=== PATIENT | male | born 1990 | race Two or more races ===

== ENCOUNTER 2020-08-22 06:23 | Inpatient (IN) | payer BC ==
[~2020-08-22] VITALS: Ht 188 cm; Wt 70.4 kg
[2020-08-22] VITALS (14 sets, daily range): BP systolic 82–138; BP diastolic 46–97
[2020-08-22] MEDS ORDERED: HALOPERIDOL LACTATE 5 MG/ML VIAL IV STA (06:26)
[2020-08-22] MEDS ORDERED: SODIUM CHLORIDE 0.9% 1000ML 1,000 ML IV STA (06:26)
[2020-08-22] MEDS ORDERED: PANTOPRAZOLE 40 MG 10ML VIAL IV STA (06:29)
[2020-08-22] MEDS ORDERED: LACTATED RINGER'S 1,000 ML INJ ONE (06:45)
[2020-08-22] MEDS ORDERED: SODIUM CHLORIDE 0.9% 1000ML 1,000 ML IV SCH (06:45)
[2020-08-22 07:21] LABS: BASOPHILS % 0.2 % (0.0-1.0); HEMATOCRIT 43.6 % (38.2-49.6); HEMOGLOBIN 13.8 g/dL (14.0-18.0); LYMPHOCYTES # (AUTO) 1.5 (1.0-3.2); LYMPHOCYTES % 10.1 % (18.0-39.1); MEAN CORPUSCULAR HEMOGLOBIN 26.2 pg (28-32); MEAN CORPUSCULAR HGB CONC 31.7 g/dL (31-35); MEAN CORPUSCULAR VOLUME 82.7 fL (81-99); MONOCYTES # (AUTO) 0.6 (0.2-0.8); MONOCYTES % 3.9 % (4.4-11.3); NEUTROPHILS # (AUTO) 12.4 (2.1-6.9); NEUTROPHILS % 85.3 % (38.7-80.0); PLATELET COUNT 481 x10e3/uL (140-360); RED BLOOD COUNT 5.27 x10e6/uL (4.3-5.7); RED CELL DISTRIBUTION WIDTH 15.7 % (11.7-14.4)
[2020-08-22 07:39] LABS: AMPHETAMINES SCREEN,URINE NEGATIVE (NEGATIVE); BENZODIAZEPINES SCREEN,URINE NEGATIVE (NEGATIVE); PHENCYCLIDINE SCREEN,URINE NEGATIVE (NEGATIVE)
[2020-08-22 07:40] LABS: CLARITY,URINE CLEAR (CLEAR); COLOR,URINE YELLOW (YELLOW)
[2020-08-22 07:41] LABS: KETONES,URINE >=160 (NEGATIVE); LEUKOCYTE ESTERASE ,URINE NEGATIVE (NEGATIVE); NITRITE,URINE NEGATIVE (NEGATIVE); PROTEIN,URINE DIPSTICK NEGATIVE (NEGATIVE); URINE UROBILINOGEN 0.2 mg/dL (0.2 - 1)
[2020-08-22 08:00] LABS: ALBUMIN 4.1 g/dL (3.5-5.0); ANION GAP 37.7 mmol/L (8-16); CALCIUM 9.4 mg/dL (8.4-10.2); CREATININE, SERUM 1.71 mg/dL (0.72-1.25); POTASSIUM 4.7 mmol/L (3.5-5.1)
[2020-08-22] MEDS ORDERED: MAGNESIUM SULF 1GRAM/DEXTROSE 100 ML IV PRN ×2 (08:15→13:00)
[2020-08-22] MEDS ORDERED: POTASSIUM CHLORIDE 20MEQ/100ML 200 ML IV PRN ×2 (08:15→13:00)
[2020-08-22] MEDS ORDERED: DEXTROSE 5%/0.45% SOD CHL 1,000 ML IV SCH (08:15)
[2020-08-22] MEDS ORDERED: INSULIN REGULAR, HUMAN 3ML VL 100 UNIT in SODIUM CHLORIDE 0.9% 99 ML IV SCH ×2 (08:15)
[2020-08-22 08:25] LABS: BACTERIA,URINE FEW /HPF; EPITHELIAL CELLS,URINE RARE /LPF; WBC,URINE (MAN) 0-5 /HPF (0-5)
[2020-08-22] MEDS ORDERED: INSULIN REGULAR, HUMAN 100 UNIT/1 ML 3ML VIAL IV ONE (09:45)
[2020-08-22] MEDS ORDERED: INSULIN REGULAR, HUMAN 100 UNIT/1 ML 3ML VIAL ONE (09:55)
[2020-08-22] MEDS: SODIUM CHLORIDE 0.9% 1000ML 1,000 ML IV SCH ×2 (09:57→12:15)
[2020-08-22] MEDS ORDERED: ACETAMINOPHEN 325 MG TAB PO PRN (10:30)
[2020-08-22] MEDS: MORPHINE SULFATE INJ 4 MG/ML INJ 1ML IV PRN ×2 (10:49→18:34)
[2020-08-22 10:57] LABS: CHOL/HDL RATIO 3.6 (3.9-4.7)
[2020-08-22 11:17] LABS: FREE THYROXINE INDEX 2.4848 (1.4-3.8); THYROID STIMULATING HORMONE 0.242 uIU/mL (0.350-4.940)
[2020-08-22 11:25] LABS: ANION GAP 26.7 mmol/L (8-16); CALCIUM 8.3 mg/dL (8.4-10.2); CREATININE, SERUM 1.4 mg/dL (0.72-1.25); MAGNESIUM 1.2 MG/DL (1.3-2.1); POTASSIUM 3.7 mmol/L (3.5-5.1)
[2020-08-22] MEDS ORDERED: INSULIN REGULAR, HUMAN 3ML VL 300 UNIT in SODIUM CHLORIDE 0.45% 100 ML 300 ML IV SCH ×2 (14:30)
[2020-08-22] MEDS ORDERED: DEXTROSE 50% SYRINGE 50 ML IV PRN (14:30)
[2020-08-22] MEDS ORDERED: INSULIN REGULAR, HUMAN 3ML VL 100 UNIT in SODIUM CHLORIDE 0.9% 100 ML IV SCH ×2 (14:45)
[2020-08-22] MEDS: ONDANSETRON HCL INJ 2MG/ML 2ML 2 MG/ML VIAL IV PRN ×3 (15:00→23:27)
[2020-08-22 15:49] LABS: BLOOD UREA NITROGEN 14 mg/dL (7-26); BUN/CREATININE RATIO 13 (6-25); CARBON DIOXIDE 29 mmol/L (22-29); CHLORIDE 102 mmol/L (98-107); CREATININE, SERUM 1.06 mg/dL (0.72-1.25); EST GLOMERULAR FILTRATION RATE > 60 ML/MIN (60-); GLUCOSE 102 mg/dL (74-118); MAGNESIUM 1.5 MG/DL (1.3-2.1); SODIUM 145 mmol/L (136-145)
[2020-08-22] MEDS: POTASSIUM CHLORIDE 40 MEQ in DEXTROSE 5%/0.45% SOD CHL 1,000 ML IV SCH ×2 (15:51→23:56)
[2020-08-22] MEDS: MAGNESIUM SULF 1GRAM/DEXTROSE 100 ML IV PRN ×2 (17:05→22:12)
[2020-08-22] MEDS: POTASSIUM CHLORIDE 20MEQ/100ML 100 ML IV PRN (17:05)
[2020-08-22] MEDS: ACETAMINOPHEN/CODEINE 300MG - 30MG TAB PO PRN (18:23)
[2020-08-22 20:52] LABS: ANION GAP 15.7 mmol/L (8-16); BLOOD UREA NITROGEN 11 mg/dL (7-26); BUN/CREATININE RATIO 10 (6-25); CALCIUM 7.8 mg/dL (8.4-10.2); CARBON DIOXIDE 29 mmol/L (22-29); CHLORIDE 102 mmol/L (98-107); EST GLOMERULAR FILTRATION RATE > 60 ML/MIN (60-); GLUCOSE 158 mg/dL (74-118); MAGNESIUM 1.6 MG/DL (1.3-2.1); POTASSIUM 3.7 mmol/L (3.5-5.1); SODIUM 143 mmol/L (136-145)
[2020-08-22] MEDS ORDERED: MAGNESIUM SULF 1GRAM/DEXTROSE 100 ML IV ONE (22:21)
[2020-08-23] VITALS (19 sets, daily range): BP systolic 90–145; BP diastolic 58–106
[2020-08-23] MEDS: ACETAMINOPHEN/CODEINE 300MG - 30MG TAB PO PRN ×2 (00:33→20:36)
[2020-08-23] MEDS: MORPHINE SULFATE INJ 4 MG/ML INJ 1ML IV PRN ×2 (01:08→21:36)
[2020-08-23 01:54] LABS: ANION GAP 14.4 mmol/L (8-16); BLOOD UREA NITROGEN 8 mg/dL (7-26); BUN/CREATININE RATIO 8 (6-25); CARBON DIOXIDE 29 mmol/L (22-29); CHLORIDE 102 mmol/L (98-107); CREATININE, SERUM 1.04 mg/dL (0.72-1.25); EST GLOMERULAR FILTRATION RATE > 60 ML/MIN (60-); GLUCOSE 121 mg/dL (74-118); MAGNESIUM 1.7 MG/DL (1.3-2.1); POTASSIUM 3.4 mmol/L (3.5-5.1); SODIUM 142 mmol/L (136-145)
[2020-08-23] MEDS: MAGNESIUM SULF 1GRAM/DEXTROSE 100 ML IV PRN (02:21)
[2020-08-23] MEDS: POTASSIUM CHLORIDE 20MEQ/100ML 100 ML IV PRN (02:22)
[2020-08-23] MEDS ORDERED: MAGNESIUM SULF 1GRAM/DEXTROSE 100 ML IV ONE (02:31)
[2020-08-23] MEDS: ONDANSETRON HCL INJ 2MG/ML 2ML 2 MG/ML VIAL IV PRN ×2 (06:15→20:25)
[2020-08-23 07:27] LABS: BASOPHILS # (AUTO) 0.1 (0.0-0.1); BASOPHILS % 0.5 % (0.0-1.0); EOSINOPHILS % 0.3 % (0.0-6.0); HEMATOCRIT 32.4 % (38.2-49.6); HEMOGLOBIN 10.1 g/dL (14.0-18.0); LYMPHOCYTES # (AUTO) 2.8 (1.0-3.2); LYMPHOCYTES % 29.3 % (18.0-39.1); MEAN CORPUSCULAR HGB CONC 31.2 g/dL (31-35); MEAN CORPUSCULAR VOLUME 83.3 fL (81-99); MONOCYTES # (AUTO) 0.6 (0.2-0.8); MONOCYTES % 6.5 % (4.4-11.3); NEUTROPHILS # (AUTO) 5.9 (2.1-6.9); PLATELET COUNT 326 x10e3/uL (140-360); RED BLOOD COUNT 3.89 x10e6/uL (4.3-5.7); RED CELL DISTRIBUTION WIDTH 15.5 % (11.7-14.4)
[2020-08-23] MEDS: PANTOPRAZOLE SOD 40 MG TABEC PO SCH (07:35)
[2020-08-23 07:46] LABS: ANION GAP 15.5 mmol/L (8-16); BLOOD UREA NITROGEN 7 mg/dL (7-26); BUN/CREATININE RATIO 7 (6-25); CALCIUM 8.1 mg/dL (8.4-10.2); CARBON DIOXIDE 27 mmol/L (22-29); CHLORIDE 101 mmol/L (98-107); CREATININE, SERUM 0.98 mg/dL (0.72-1.25); EST GLOMERULAR FILTRATION RATE > 60 ML/MIN (60-); GLUCOSE 114 mg/dL (74-118); MAGNESIUM 1.7 MG/DL (1.3-2.1); PHOSPHORUS 1.4 MG/DL (2.3-4.7); POTASSIUM 3.5 mmol/L (3.5-5.1); SODIUM 140 mmol/L (136-145)
[2020-08-23] MEDS: POTASSIUM CHLORIDE 40 MEQ in DEXTROSE 5%/0.45% SOD CHL 1,000 ML IV SCH ×2 (07:49→16:21)
[2020-08-23 07:59] LABS: CHOL/HDL RATIO 3.1 (3.9-4.7)
[2020-08-23 08:20] LABS: FREE T4 (FREE THYROXINE) 1.18 ng/dL (0.8-1.8); THYROID STIMULATING HORMONE 2.29 uIU/mL (0.350-4.940)
[2020-08-23] MEDS: DIPHENHYDRAMINE HCL INJ 50 MG/ML VIAL IV PRN (08:22)
[2020-08-23] MEDS ORDERED: POTASSIUM PHOSPHATE 15 MM in SODIUM CHLORIDE 0.9% 250ML 250 ML IV ONE (09:00)
[2020-08-23] MEDS ORDERED: CEPACOL SORE THROAT LOZENGES PO PRN (14:30)
[2020-08-23] MEDS ORDERED: NICOTINE POLACRILEX 2 MG LOZG #24 MM PRN (14:30)
[2020-08-23] MEDS: INSULIN GLARGINE 100 UNITS/ML VIAL SQ SCH (21:00)
[2020-08-23] MEDS ORDERED: PROMETHAZINE 12.5MG/ NACL 0.9% 12.5 MG/50 ML BAG IV ONE (21:45)
[2020-08-23] MEDS: INSULIN REGULAR, HUMAN 3ML VL 100 UNIT in SODIUM CHLORIDE 0.9% 99 ML IV SCH ×2 (23:45)
[2020-08-24] VITALS (17 sets, daily range): BP systolic 89–147; BP diastolic 66–95
[2020-08-24] MEDS: ONDANSETRON HCL INJ 2MG/ML 2ML 2 MG/ML VIAL IV PRN ×3 (00:38→16:31)
[2020-08-24] MEDS: POTASSIUM CHLORIDE 40 MEQ in DEXTROSE 5%/0.45% SOD CHL 1,000 ML IV SCH ×3 (02:35→19:20)
[2020-08-24] MEDS ORDERED: DEXTROSE IV ONE (02:37)
[2020-08-24] MEDS ORDERED: SOD CHL IV ONE (02:37)
[2020-08-24] MEDS: MORPHINE SULFATE INJ 4 MG/ML INJ 1ML IV PRN ×3 (02:49→16:31)
[2020-08-24] MEDS: INSULIN REGULAR, HUMAN 3ML VL 100 UNIT in SODIUM CHLORIDE 0.9% 99 ML IV SCH ×2 (04:13)
[2020-08-24 06:27] LABS: BASOPHILS % 0.2 % (0.0-1.0); EOSINOPHILS % 0.1 % (0.0-6.0); HEMATOCRIT 36.3 % (38.2-49.6); HEMOGLOBIN 11.5 g/dL (14.0-18.0); LYMPHOCYTES # (AUTO) 1.6 (1.0-3.2); LYMPHOCYTES % 17.4 % (18.0-39.1); MEAN CORPUSCULAR HEMOGLOBIN 25.8 pg (28-32); MEAN CORPUSCULAR HGB CONC 31.7 g/dL (31-35); MEAN CORPUSCULAR VOLUME 81.6 fL (81-99); MONOCYTES # (AUTO) 0.4 (0.2-0.8); PLATELET COUNT 309 x10e3/uL (140-360); RED BLOOD COUNT 4.45 x10e6/uL (4.3-5.7); RED CELL DISTRIBUTION WIDTH 14.9 % (11.7-14.4)
[2020-08-24 06:47] LABS: ANION GAP 17.1 mmol/L (8-16); BLOOD UREA NITROGEN < 5 mg/dL (7-26); CALCIUM 8.4 mg/dL (8.4-10.2); CARBON DIOXIDE 30 mmol/L (22-29); CHLORIDE 95 mmol/L (98-107); CREATININE, SERUM 0.96 mg/dL (0.72-1.25); EST GLOMERULAR FILTRATION RATE > 60 ML/MIN (60-); GLUCOSE 203 mg/dL (74-118); POTASSIUM 4.1 mmol/L (3.5-5.1); SODIUM 138 mmol/L (136-145)
[2020-08-24 06:49] LABS: BUN/CREATININE RATIO 5 (6-25)
[2020-08-24] MEDS: PANTOPRAZOLE SOD 40 MG TABEC PO SCH (07:29)
[2020-08-24] MEDS: ACETAMINOPHEN/CODEINE 300MG - 30MG TAB PO PRN (08:20)
[2020-08-24] MEDS: DIPHENHYDRAMINE HCL INJ 50 MG/ML VIAL IV PRN (11:57)
[2020-08-24] MEDS: BUSPIRONE HCL 5 MG TAB PO SCH (19:20)
[2020-08-24] MEDS: INSULIN GLARGINE 100 UNITS/ML VIAL SQ SCH (22:42)
[2020-08-24 23:45] LABS: ANION GAP 18.6 mmol/L (8-16); BLOOD UREA NITROGEN < 5 mg/dL (7-26); CALCIUM 8.5 mg/dL (8.4-10.2); CARBON DIOXIDE 27 mmol/L (22-29); CHLORIDE 98 mmol/L (98-107); CREATININE, SERUM 0.84 mg/dL (0.72-1.25); EST GLOMERULAR FILTRATION RATE > 60 ML/MIN (60-); POTASSIUM 3.6 mmol/L (3.5-5.1); SODIUM 140 mmol/L (136-145)
[2020-08-25] VITALS (15 sets, daily range): BP systolic 99–127; BP diastolic 65–99
[2020-08-25 00:03] LABS: BUN/CREATININE RATIO 6 (6-25)
[2020-08-25 00:04] LABS: GLUCOSE 56 mg/dL (74-118)
[2020-08-25 01:14] LABS: LIPASE < 4 U/L (8-78)
[2020-08-25] MEDS: POTASSIUM CHLORIDE 40 MEQ in DEXTROSE 5%/0.45% SOD CHL 1,000 ML IV SCH ×4 (02:06→23:07)
[2020-08-25 06:11] LABS: MAGNESIUM 0.9 MG/DL (1.3-2.1)
[2020-08-25 06:20] LABS: BASOPHILS % 0.7 % (0.0-1.0); EOSINOPHILS # (AUTO) 0.1 (0.0-0.4); EOSINOPHILS % 2.4 % (0.0-6.0); HEMATOCRIT 35.4 % (38.2-49.6); HEMOGLOBIN 11.3 g/dL (14.0-18.0); LYMPHOCYTES # (AUTO) 2.9 (1.0-3.2); MEAN CORPUSCULAR HEMOGLOBIN 26.5 pg (28-32); MEAN CORPUSCULAR HGB CONC 31.9 g/dL (31-35); MEAN CORPUSCULAR VOLUME 82.9 fL (81-99); MONOCYTES # (AUTO) 0.3 (0.2-0.8); MONOCYTES % 4.9 % (4.4-11.3); NEUTROPHILS # (AUTO) 2.1 (2.1-6.9); NEUTROPHILS % 38.6 % (38.7-80.0); PLATELET COUNT 247 x10e3/uL (140-360); RED BLOOD COUNT 4.27 x10e6/uL (4.3-5.7); RED CELL DISTRIBUTION WIDTH 15.1 % (11.7-14.4)
[2020-08-25 06:36] LABS: ANION GAP 16.3 mmol/L (8-16); BLOOD UREA NITROGEN < 5 mg/dL (7-26); BUN/CREATININE RATIO 6 (6-25); CALCIUM 8.1 mg/dL (8.4-10.2); CARBON DIOXIDE 28 mmol/L (22-29); CHLORIDE 99 mmol/L (98-107); CREATININE, SERUM 0.88 mg/dL (0.72-1.25); EST GLOMERULAR FILTRATION RATE > 60 ML/MIN (60-); GLUCOSE 131 mg/dL (74-118); POTASSIUM 4.3 mmol/L (3.5-5.1); SODIUM 139 mmol/L (136-145)
[2020-08-25] MEDS ORDERED: MAGNESIUM SULFATE 2GM/50ML 100 ML IV ONE (06:57)
[2020-08-25] MEDS: MAGNESIUM SULFATE 2GM/50ML 50 ML IV SCH ×2 (07:43→09:51)
[2020-08-25] MEDS: BUSPIRONE HCL 5 MG TAB PO SCH ×2 (08:06→19:16)
[2020-08-25] MEDS: PANTOPRAZOLE SOD 40 MG TABEC PO SCH (08:06)
[2020-08-25] MEDS ORDERED: BUSPIRONE HCL 5 MG TAB PO SCH (09:00)
[2020-08-25] MEDS: ONDANSETRON HCL INJ 2MG/ML 2ML 2 MG/ML VIAL IV PRN (13:04)
[2020-08-25] MEDS: MORPHINE SULFATE INJ 4 MG/ML INJ 1ML IV PRN (13:04)
[2020-08-25 16:42] LABS: ANION GAP 20.2 mmol/L (8-16); BLOOD UREA NITROGEN < 5 mg/dL (7-26); CALCIUM 9.2 mg/dL (8.4-10.2); CARBON DIOXIDE 26 mmol/L (22-29); CHLORIDE 97 mmol/L (98-107); CREATININE, SERUM 1.02 mg/dL (0.72-1.25); EST GLOMERULAR FILTRATION RATE > 60 ML/MIN (60-); GLUCOSE 167 mg/dL (74-118); POTASSIUM 4.2 mmol/L (3.5-5.1); SODIUM 139 mmol/L (136-145)
[2020-08-25 16:43] LABS: BUN/CREATININE RATIO 5 (6-25)
[2020-08-25] MEDS ORDERED: MAGNESIUM SULF 1GRAM/DEXTROSE 100 ML IV ONE (17:00)
[2020-08-25] MEDS: METOCLOPRAMIDE HCL 10 MG/2ML VIAL IV SCH ×2 (17:25→23:13)
[2020-08-25] MEDS: INSULIN GLARGINE 100 UNITS/ML VIAL SQ SCH (23:02)
[2020-08-26] VITALS (9 sets, daily range): BP systolic 107–162; BP diastolic 70–101
[2020-08-26] MEDS: POTASSIUM CHLORIDE 40 MEQ in DEXTROSE 5%/0.45% SOD CHL 1,000 ML IV SCH ×3 (05:40→19:25)
[2020-08-26] MEDS: METOCLOPRAMIDE HCL 10 MG/2ML VIAL IV SCH ×3 (05:40→17:35)
[2020-08-26] MEDS: ONDANSETRON HCL INJ 2MG/ML 2ML 2 MG/ML VIAL IV PRN ×2 (06:57→09:51)
[2020-08-26] MEDS: BUSPIRONE HCL 5 MG TAB PO SCH ×2 (07:34→15:56)
[2020-08-26] MEDS: MORPHINE SULFATE INJ 4 MG/ML INJ 1ML IV PRN ×4 (07:34→20:12)
[2020-08-26] MEDS: PANTOPRAZOLE SOD 40 MG TABEC PO SCH (07:34)
[2020-08-26 07:40] LABS: ALANINE AMINOTRANSFERASE 14 IU/L (0-55); ALBUMIN 3.5 g/dL (3.5-5.0); ALKALINE PHOSPHATASE 115 IU/L (40-150); ANION GAP 19.6 mmol/L (8-16); BLOOD UREA NITROGEN < 5 mg/dL (7-26); CARBON DIOXIDE 27 mmol/L (22-29); CHLORIDE 96 mmol/L (98-107); CREATININE, SERUM 1.04 mg/dL (0.72-1.25); EST GLOMERULAR FILTRATION RATE > 60 ML/MIN (60-); GLUCOSE 252 mg/dL (74-118); MAGNESIUM 1.4 MG/DL (1.3-2.1); POTASSIUM 4.6 mmol/L (3.5-5.1); SODIUM 138 mmol/L (136-145)
[2020-08-26 07:44] LABS: BUN/CREATININE RATIO 5 (6-25)
[2020-08-26] MEDS: PROMETHAZINE 12.5MG/ NACL 0.9% 12.5 MG/50 ML BAG IV PRN ×3 (11:56→20:12)
[2020-08-26 15:20] LABS: AMYLASE 41 U/L (25-125); LIPASE 5 U/L (8-78)
[2020-08-26] MEDS: INSULIN GLARGINE 100 UNITS/ML VIAL SQ SCH (20:14)
[2020-08-27] VITALS (16 sets, daily range): BP systolic 100–145; BP diastolic 67–99
[2020-08-27] MEDS: METOCLOPRAMIDE HCL 10 MG/2ML VIAL IV SCH ×4 (00:03→17:59)
[2020-08-27] MEDS: POTASSIUM CHLORIDE 40 MEQ in DEXTROSE 5%/0.45% SOD CHL 1,000 ML IV SCH ×4 (00:31→19:02)
[2020-08-27] MEDS ORDERED: PANTOPRAZOLE 40 MG 10ML VIAL IV STA (03:58)
[2020-08-27] MEDS ORDERED: PANTOPRAZOL 40MG/SOD CHL 0.9% 250 ML IV SCH (04:00)
[2020-08-27 05:42] LABS: BASOPHILS % 0.3 % (0.0-1.0); EOSINOPHILS # (AUTO) 0.1 (0.0-0.4); EOSINOPHILS % 1.7 % (0.0-6.0); HEMATOCRIT 35.2 % (38.2-49.6); HEMOGLOBIN 11.6 g/dL (14.0-18.0); LYMPHOCYTES % 41.5 % (18.0-39.1); MEAN CORPUSCULAR HEMOGLOBIN 27.8 pg (28-32); MEAN CORPUSCULAR VOLUME 84.2 fL (81-99); MONOCYTES # (AUTO) 0.4 (0.2-0.8); MONOCYTES % 6.2 % (4.4-11.3); NEUTROPHILS # (AUTO) 3.6 (2.1-6.9); NEUTROPHILS % 49.9 % (38.7-80.0); PLATELET COUNT 214 x10e3/uL (140-360); RED BLOOD COUNT 4.18 x10e6/uL (4.3-5.7); RED CELL DISTRIBUTION WIDTH 16.2 % (11.7-14.4)
[2020-08-27 06:21] LABS: ALANINE AMINOTRANSFERASE 11 IU/L (0-55); ALKALINE PHOSPHATASE 105 IU/L (40-150); ANION GAP 15.1 mmol/L (8-16); CALCIUM 8.8 mg/dL (8.4-10.2); CARBON DIOXIDE 32 mmol/L (22-29); CHLORIDE 99 mmol/L (98-107); CREATININE, SERUM 0.93 mg/dL (0.72-1.25); EST GLOMERULAR FILTRATION RATE > 60 ML/MIN (60-); GLUCOSE 94 mg/dL (74-118); POTASSIUM 4.1 mmol/L (3.5-5.1); SODIUM 142 mmol/L (136-145)
[2020-08-27 06:23] LABS: BUN/CREATININE RATIO 5 (6-25)
[2020-08-27 06:35] LABS: BLOOD UREA NITROGEN < 5 mg/dL (7-26)
[2020-08-27] MEDS: BUSPIRONE HCL 5 MG TAB PO SCH ×2 (07:29→16:59)
[2020-08-27] MEDS: PANTOPRAZOL 40MG/SOD CHL 0.9% 50 ML IV SCH ×3 (08:33→17:59)
[2020-08-27] MEDS ORDERED: PANTOPRAZOLE 40 MG 10ML VIAL IV SCH (09:00)
[2020-08-27] MEDS: MORPHINE SULFATE INJ 4 MG/ML INJ 1ML IV PRN ×2 (10:48→14:49)
[2020-08-27] MEDS: PROMETHAZINE 12.5MG/ NACL 0.9% 12.5 MG/50 ML BAG IV PRN (12:15)
[2020-08-27] MEDS: INSULIN GLARGINE 100 UNITS/ML VIAL SQ SCH (20:43)
[2020-08-28] VITALS (20 sets, daily range): BP systolic 99–127; BP diastolic 69–102
[2020-08-28] MEDS: PANTOPRAZOL 40MG/SOD CHL 0.9% 50 ML IV SCH ×5 (00:02→18:59)
[2020-08-28] MEDS ORDERED: DONNATAL/LIDOCAINE/MAALOX 30 ML SUSP PO ONE (04:00)
[2020-08-28 04:30] LABS: BASOPHILS % 0.5 % (0.0-1.0); EOSINOPHILS # (AUTO) 0.2 (0.0-0.4); EOSINOPHILS % 3.1 % (0.0-6.0); HEMATOCRIT 37.7 % (38.2-49.6); HEMOGLOBIN 11.9 g/dL (14.0-18.0); LYMPHOCYTES # (AUTO) 2.9 (1.0-3.2); LYMPHOCYTES % 47.3 % (18.0-39.1); MEAN CORPUSCULAR HEMOGLOBIN 26.1 pg (28-32); MEAN CORPUSCULAR HGB CONC 31.6 g/dL (31-35); MEAN CORPUSCULAR VOLUME 82.7 fL (81-99); MONOCYTES # (AUTO) 0.4 (0.2-0.8); MONOCYTES % 5.9 % (4.4-11.3); NEUTROPHILS # (AUTO) 2.6 (2.1-6.9); NEUTROPHILS % 42.9 % (38.7-80.0); PLATELET COUNT 233 x10e3/uL (140-360); RED BLOOD COUNT 4.56 x10e6/uL (4.3-5.7); RED CELL DISTRIBUTION WIDTH 15.1 % (11.7-14.4)
[2020-08-28] MEDS: POTASSIUM CHLORIDE 40 MEQ in DEXTROSE 5%/0.45% SOD CHL 1,000 ML IV SCH ×4 (04:41→23:49)
[2020-08-28 04:49] LABS: ALANINE AMINOTRANSFERASE 10 IU/L (0-55); ALBUMIN 3.1 g/dL (3.5-5.0); ALBUMIN/GLOBULIN RATIO 1.1 (0.8-2.0); ALKALINE PHOSPHATASE 103 IU/L (40-150); ANION GAP 17.1 mmol/L (8-16); CALCIUM 8.5 mg/dL (8.4-10.2); CARBON DIOXIDE 27 mmol/L (22-29); CHLORIDE 98 mmol/L (98-107); CREATININE, SERUM 0.94 mg/dL (0.72-1.25); EST GLOMERULAR FILTRATION RATE > 60 ML/MIN (60-); GLUCOSE 121 mg/dL (74-118); POTASSIUM 4.1 mmol/L (3.5-5.1); SODIUM 138 mmol/L (136-145)
[2020-08-28 04:59] LABS: BLOOD UREA NITROGEN < 2 mg/dL (7-26); BUN/CREATININE RATIO 2 (6-25)
[2020-08-28] MEDS: METOCLOPRAMIDE HCL 10 MG/2ML VIAL IV SCH ×6 (06:00→23:21)
[2020-08-28] MEDS: BUSPIRONE HCL 5 MG TAB PO SCH ×5 (08:13→18:56)
[2020-08-28] MEDS ORDERED: DEXTROSE 50% SYRINGE 50 ML IV PRN (14:30)
[2020-08-28] MEDS ORDERED: INSULIN LISPRO 100 UNIT/1 ML 3ML VIAL SQ ONE (14:45)
[2020-08-28] MEDS: INSULIN LISPRO 100 UNIT/1 ML 3ML VIAL SQ SCH ×2 (16:39→20:45)
[2020-08-28] MEDS: MORPHINE SULFATE INJ 4 MG/ML INJ 1ML IV PRN (17:02)
[2020-08-28] MEDS: INSULIN GLARGINE 100 UNITS/ML VIAL SQ SCH (20:57)
[2020-08-28] MEDS: HEPARIN SOD (PORCINE) 5,000 UNIT/ML VIAL SC SCH (20:58)
[2020-08-29] VITALS (14 sets, daily range): BP systolic 103–136; BP diastolic 63–94
[2020-08-29] MEDS: PANTOPRAZOL 40MG/SOD CHL 0.9% 50 ML IV SCH ×5 (01:10→20:56)
[2020-08-29] MEDS: METOCLOPRAMIDE HCL 10 MG/2ML VIAL IV SCH ×4 (05:29→23:00)
[2020-08-29 05:57] LABS: BASOPHILS % 0.4 % (0.0-1.0); EOSINOPHILS # (AUTO) 0.2 (0.0-0.4); EOSINOPHILS % 3.6 % (0.0-6.0); HEMATOCRIT 36.5 % (38.2-49.6); HEMOGLOBIN 11.6 g/dL (14.0-18.0); LYMPHOCYTES # (AUTO) 2.1 (1.0-3.2); LYMPHOCYTES % 44.3 % (18.0-39.1); MEAN CORPUSCULAR HGB CONC 31.8 g/dL (31-35); MEAN CORPUSCULAR VOLUME 81.7 fL (81-99); MONOCYTES # (AUTO) 0.3 (0.2-0.8); MONOCYTES % 5.7 % (4.4-11.3); NEUTROPHILS # (AUTO) 2.2 (2.1-6.9); NEUTROPHILS % 45.6 % (38.7-80.0); PLATELET COUNT 196 x10e3/uL (140-360); RED BLOOD COUNT 4.47 x10e6/uL (4.3-5.7); RED CELL DISTRIBUTION WIDTH 14.6 % (11.7-14.4)
[2020-08-29 06:20] LABS: ANION GAP 15.2 mmol/L (8-16); BLOOD UREA NITROGEN < 5 mg/dL (7-26); CALCIUM 8.2 mg/dL (8.4-10.2); CARBON DIOXIDE 30 mmol/L (22-29); CHLORIDE 95 mmol/L (98-107); CREATININE, SERUM 1.05 mg/dL (0.72-1.25); EST GLOMERULAR FILTRATION RATE > 60 ML/MIN (60-); GLUCOSE 282 mg/dL (74-118); POTASSIUM 4.2 mmol/L (3.5-5.1); SODIUM 136 mmol/L (136-145)
[2020-08-29 06:21] LABS: BUN/CREATININE RATIO 5 (6-25)
[2020-08-29] MEDS: DIPHENHYDRAMINE HCL INJ 50 MG/ML VIAL IV PRN ×2 (08:20→23:00)
[2020-08-29] MEDS: INSULIN LISPRO 100 UNIT/1 ML 3ML VIAL SQ SCH ×5 (08:26→20:19)
[2020-08-29] MEDS: HEPARIN SOD (PORCINE) 5,000 UNIT/ML VIAL SC SCH ×2 (08:27→21:00)
[2020-08-29] MEDS: POTASSIUM CHLORIDE 40 MEQ in DEXTROSE 5%/0.45% SOD CHL 1,000 ML IV SCH ×2 (11:19→19:59)
[2020-08-29] MEDS: BUSPIRONE HCL 5 MG TAB PO SCH (15:55)
[2020-08-29] MEDS ORDERED: INSULIN GLARGINE 100 UNITS/ML VIAL SQ SCH (21:00)
[2020-08-30 00:34] VITALS: BP 106/71
[2020-08-30] MEDS: PANTOPRAZOL 40MG/SOD CHL 0.9% 50 ML IV SCH ×3 (02:35→11:30)
[2020-08-30] MEDS: POTASSIUM CHLORIDE 40 MEQ in DEXTROSE 5%/0.45% SOD CHL 1,000 ML IV SCH ×2 (04:32→13:44)
[2020-08-30 04:33] VITALS: BP 115/83
[2020-08-30] MEDS: METOCLOPRAMIDE HCL 10 MG/2ML VIAL IV SCH ×2 (05:43→12:00)
[2020-08-30 06:35] LABS: ANION GAP 15.2 mmol/L (8-16); BLOOD UREA NITROGEN < 5 mg/dL (7-26); BUN/CREATININE RATIO 4 (6-25); CALCIUM 8.2 mg/dL (8.4-10.2); CARBON DIOXIDE 31 mmol/L (22-29); CHLORIDE 95 mmol/L (98-107); CREATININE, SERUM 1.13 mg/dL (0.72-1.25); EST GLOMERULAR FILTRATION RATE > 60 ML/MIN (60-); GLUCOSE 265 mg/dL (74-118); POTASSIUM 4.2 mmol/L (3.5-5.1); SODIUM 137 mmol/L (136-145)
[2020-08-30] MEDS: INSULIN LISPRO 100 UNIT/1 ML 3ML VIAL SQ SCH ×4 (07:30→11:30)
[2020-08-30] MEDS ORDERED: DEXTROSE 5%/0.45% SOD CHL 1,000 ML IV ONE ×2 (07:53→08:09)
[2020-08-30 08:45] VITALS: BP 115/77
[2020-08-30] MEDS: HEPARIN SOD (PORCINE) 5,000 UNIT/ML VIAL SC SCH (09:00)
[2020-08-30] MEDS: BUSPIRONE HCL 5 MG TAB PO SCH (09:00)
[2020-08-30 09:14] VITALS: BP 115/77
[2020-08-30 13:16] VITALS: BP 120/72
[2020-08-30] MEDS ORDERED: LEVEMIR100 UNIT/1 SC (14:39)
[2020-08-30] MEDS ORDERED: NOVOLOG100 UNIT/1 SC (14:41)
== END 2020-08-30 16:10 | disposition home or self-care (01) | DRG 639 ==
LOC: ER 07:12 → ERHOLD 08:12 → ICU 14:19 → MED/SURG2 08-29 14:19
PROVIDERS: ADMIT Internal Medicine; ATTEND Internal Medicine
DX: E10.10 Type 1 diabetes mellitus with ketoacidosis without coma (principal); E86.0 Dehydration; Z20.822 Contact with and (suspected) exposure to COVID-19; F32.9 Major depressive disorder, single episode, unspecified; K31.84 Gastroparesis; Z79.899 Other long term (current) drug therapy; E10.43 Type 1 diabetes mellitus with diabetic autonomic (poly)neuropathy; E10.42 Type 1 diabetes mellitus with diabetic polyneuropathy
CPT/HCPCS: 36415; 36569; 71045; 74176; 80048; 80053; 80061; 80307; 81001; 82150; 82948; 83036; 83605; 83690; 83735; 84100; 84436; 84439; 84443; 84479; 85025; 87040; 93005; 96372; 99285; J1200; J1630; J1644; J1815; J1817; J2270; J2405; J2550; J2765; J3475; J3480; J7030; J7050; J7121; J7799; U0002